=== PATIENT | male | born 1945 | race African-American/Black ===

== ENCOUNTER 2018-07-05 19:28 | Emergency (ER) | payer OTHER ==
[~2018-07-05] VITALS: Ht 167.6 cm; Wt 76.2 kg
[~2018-07-05 19:28] MED LIST: AGGRENOX CAPSU1 EACH PO; COLACE100 MG PO; COREG6.25 MG PO; FLOMAX0.4 MG PO; GLIPIZIDE ER10 MG PO; GLUCOPHAGE1000 MG PO; HYTRIN 5 M5 MG/1 CAP PO; LISINOPRIL40 MG PO; LYRICA25 MG PO; PIOGLITAZONE15 MG; PLAVIX 75 MG TA75 M1 PO; PRILOSEC 20 MG20 MG PO; PRINIVIL10 MG PO; TAMSULOSIN HCL0.4 MG PF; TIMOLOL GL0.5 %/5 M1 OPHTHALMIC; TOPROL XL100 MG PO; TORSEMIDE10 MG PO; TRAZODONE HCL50 MG PO; TYLENOL325 MG PO; VIAGRA100 MG PO; ZOLOFT 50 MG TA50 M1 PO; ZOLOFT100 MG PO
[2018-07-05 20:13] LABS: ABSOLUTE NEUTROPHILS 4.3 thou/uL (1.4-8.2); BASOPHILS 0.6 % (0.0-2.0); EOSINOPHILS 1.3 % (0.0-3.0); HEMATOCRIT 36.7 % (42.0-52.0); HEMOGLOBIN 12.3 gm/dL (14.0-18.0); LYMPHOCYTES 24.1 % (24.0-44.0); MCH 26.7 pg (26.0-34.0); MCHC 33.6 g/dL (28.0-37.0); MCV 79.5 fL (80.0-100.0); MONOCYTES 7.7 % (1.0-8.0); PLATELET COUNT 115 thou/uL (150-400); POLYS 66.3 % (36.0-66.0); RBC 4.61 mil/uL (4.50-6.00); RDW 15.7 % (10.5-14.5); WBC 6.5 thou/uL (4.0-11.0)
[2018-07-05 20:26] LABS: ANION GAP 10 mmol/L (7-16); BUN 43 mg/dL (7-18); CALCIUM 8.8 mg/dL (8.5-10.1); CHLORIDE 103 mmol/L (98-107); CO2 26 mmol/L (21-32); CREATININE 2.4 mg/dL (0.7-1.3); GLUCOSE 155 mg/dL (74-106); POTASSIUM 4.7 mmol/L (3.5-5.1); SODIUM 139 mmol/L (136-145)
[2018-07-05 20:31] LABS: ALBUMIN 3.5 g/dL (3.4-5.0); SGOT 17 U/L (15-37); SGPT 19 U/L (30-65); TOTAL BILIRUBIN 0.2 mg/dL (<0.1-1.0); TROPONIN-I <0.06 ng/mL (<0.06)
[2018-07-05 20:36] LABS: APTT 35.7 Seconds (24.5-32.8); INR 1.1; PROTIME 11.4 Seconds (9.3-11.4)
[2018-07-05] MEDS ORDERED: MIRALAX17 GM PO (21:15)
[2018-07-05 21:22] VITALS: BP 135/82
--- NOTE | 2018-07-06 08:49 | EKG ---
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1945 Requested By: Meredith Skinner Order Number: [id number] MD: Noman Heath Measurements Intervals [place] Rate: 69 P: -4 TN: 186 QRS: 4 QRSD: 78 T: 22 QT: 422 QTc: 452 Interpretive Statements Sinus rhythm Compared to ECG 11/28/2013 06:49:02 No significant changes Electronically Signed On 07-06-2018 8:49:04 CDT by Noman Heath [email or web address] ��������������������������������������������� <ELECTRONICALLY SIGNED> ���������������������������������������� By: Noman Heath MD ��������������������������������������������� 07/06/1849 50 50 Noman Heath MD /BLANE
== END 2018-07-05 21:34 | disposition home or self-care (01) ==
LOC: ER 19:28
PROVIDERS: Student in an Organized Health Care Education/Training Program
DX: K64.8 Other hemorrhoids (principal); E11.51 Type 2 diabetes mellitus with diabetic peripheral angiopathy without gangrene; E11.40 Type 2 diabetes mellitus with diabetic neuropathy, unspecified; E11.22 Type 2 diabetes mellitus with diabetic chronic kidney disease; I12.9 Hypertensive chronic kidney disease with stage 1 through stage 4 chronic kidney disease, or unspecified chronic kidney disease; N18.9 Chronic kidney disease, unspecified; Z87.891 Personal history of nicotine dependence; Z79.899 Other long term (current) drug therapy; Z86.73 Personal history of transient ischemic attack (TIA), and cerebral infarction without residual deficits

== ENCOUNTER 2019-09-18 10:59 | Inpatient (IN) | payer OTHER ==
[~2019-09-18] VITALS: Ht 167.6 cm; Wt 80.8 kg
--- NOTE | ~2019-09-18 | EMS ---
[address] [address] EMS Patient Care Report Name: LANI MOODY JR Room #: PRE M.R.#: [id number] Admission: Attend Phys: Discharge: Date of : 45 Report #: [id number] THIS REPORT FOR: //name// Report Transmitted: 09/18/2019 10:21 EMS Care Summary [place], [place]/[facility] Incident [id number] @ 09/18/2019 10:29 Incident Location [address] [place] [address] Patient LANI MOODY Male, 73 Years 1945 Patient Address [address] [place] [address] Patient History Diabetes,Hypertension (HTN),Stroke/CVA, Patient Allergies No known allergies, Patient Medications Insulin, Chief Complaint NUMBNESS/ TINGLING R ARM Disposition Transported No Lights/Hailey Dispatch Reason Stroke/CVA Transported To [facility] Narrative UPON ARRIVAL PT SITTING UPRIGHT ON COUCH CONSCIOUS AND ALERT. PT STATES HIS R HAND BEGAN FEELING NUMB AND TINGLY AT 1800 YESTERDAY ALONG WITH THE BOTTOM OF HIS FOOT ESPECIALLY WHEN WALKING. PT STATES HIS VISION IS MORE BLURRY THAN NORMAL AND HE IS HAVING TROUBLE BALANCING. PT TRANSPORTED TO [facility]. [address] [address] EMS Patient Care Report Name: LANI MOODY JR Room #: PRE Kendrick.#: [id number] Admission: Attend Phys: Discharge: Date of : 45 Report #: [id number] Initial Vitals @10:52P: 67,SpO2: 93, @10:52P: 72,BP: 176/100,GCS: 15, @10:40P: 68,R: 16,BP: 202/111,Pain: 0/10,GCS: 15,SpO2: 97,Revised Trauma: 12, @10:35P: 74,R: 16,BP: 205/98,Pain: 0/10,GCS: 15,Glucose: 112,SpO2: 98,Revised Trauma: 12, Assessments @10:36MENTAL:Person Oriented,Time Oriented,Event Oriented,Place Oriented,SKIN:HEENT:Head/Face: No Abnormalities,LUNG SOUNDS:General: No Abnormalities,ABDOMEN:General: No Abnormalities,PELVIS//GI:EXTREMITIES:Right Arm: Abnormal Sensation,Right Leg: Abnormal Sensation,Left Arm: No Abnormalities,Left Leg: No Abnormalities,PULSE:Radial: 2+ Normal,NEURO:No Abnormalities, Impression Stroke Procedures @10:36ALS AssessmentResponse: UnchangedSucceeded@10:42Saline Lock 10cc (20 ga) Site: Antecubital-LeftResponse: UnchangedSucceeded@10:403-Lead ECGResponse: UnchangedSucceeded Timeline 10:28,Call Received 10:28,Dispatch Notified 10:29,Dispatched 10:30,En Route 10:34,On Scene 10:35,At Patient 10:35,BP: 205/98 M,PULSE: 74,RR: 16 R,SPO2: 98 Ox,ETCO2: ,B,PAIN: 0,GCS: 15, 10:36,ALS Assessment,Response: UnchangedSucceeded, 10:40,BP: 202/111 M,PULSE: 68,RR: 16 R,SPO2: 97 Ox,ETCO2: ,BG: ,PAIN: 0,GCS: 15, 10:40,3-Lead ECG,Response: UnchangedSucceeded, 10:42,Saline Lock 10cc 20 ga Site: Antecubital-Left,Response: UnchangedSucceeded, 10:43,Depart Scene 10:52,BP: / M,PULSE: 67,RR: R,SPO2: 93 Ox,ETCO2: ,BG: ,PAIN: ,GCS: , 10:52,BP: 176/100 M,PULSE: 72,RR: R,SPO2: Ox,ETCO2: ,BG: ,PAIN: ,GCS: 15, 10:55,At Destination 11:08,Call Closed Disclaimer [address] [address] EMS Patient Care Report Name: LANI MOODY Room #: [facility] M.R.#: [id number] Admission: Attend Phys: Discharge: Date of : 45 Report #: [id number] v1.1 Copyright 2020 [employer] This EMS Care Summary contains data elements from the applicable legal record (which may be displayed differently). It is designed to provide pertinent information for the following purposes: continuity of care, clinical quality, and state data reporting. The complete legal record is available to ED staff and administrators of the receiving hospital in [facility]'s Patient Tracker. All data is provided "as is."
[~2019-09-18 10:59] MED LIST changes: +MIRALAX17 GM PO
[2019-09-18 11:03] VITALS: BP 190/96
[2019-09-18 11:31] LABS: ABSOLUTE NEUTROPHILS 3.5 thou/uL (1.4-8.2); BASOPHILS 0.3 % (0.0-2.0); EOSINOPHILS 1.7 % (0.0-3.0); HEMATOCRIT 43.3 % (42.0-52.0); HEMOGLOBIN 14.5 gm/dL (14.0-18.0); MCHC 33.5 g/dL (28.0-37.0); MCV 80.5 fL (80.0-100.0); MONOCYTES 7.3 % (1.0-8.0); PLATELET COUNT 121 thou/uL (150-400); POLYS 61.7 % (36.0-66.0); RBC 5.37 mil/uL (4.50-6.00); RDW 16.1 % (10.5-14.5); WBC 5.7 thou/uL (4.0-11.0)
[2019-09-18 11:35] LABS: ANION GAP 4 mmol/L (7-16); BUN 33 mg/dL (7-18); CHLORIDE 105 mmol/L (98-107); CO2 28 mmol/L (21-32); CREATININE 1.7 mg/dL (0.7-1.3); GLUCOSE 105 mg/dL (74-106); POTASSIUM 4.7 mmol/L (3.5-5.1); SODIUM 137 mmol/L (136-145)
[2019-09-18 11:44] LABS: APTT 36.5 Seconds (24.5-32.8); INR 1.2
[2019-09-18 11:45] LABS: ALBUMIN 3.5 g/dL (3.4-5.0); MAGNESIUM 2.1 mg/dL (1.8-2.4); SGOT 24 U/L (15-37); SGPT 22 U/L (30-65); TOTAL BILIRUBIN 0.4 mg/dL (0.2-1.0); TOTAL PROTEIN 7.2 g/dL (6.4-8.2); TROPONIN-I <0.06 ng/mL (<0.06)
[2019-09-18] MEDS ORDERED: NOVOLOG100 UNIT/M SUBQ (12:30)
[2019-09-18] MEDS ORDERED: LEVEMIR FL100 UNIT/2 SUBLING (12:31)
[2019-09-18 13:54] VITALS: BP 165/87
--- NOTE | 2019-09-18 14:02 | NUR ---
ATTEMPTED TO CALL REPORT TO CCU BUT WAS TOLD THE PT HAD NOT BEEN ASSIGNED TO A NURSE YET; WAS TOLD THEY WOULD CALL BACK SOON TO TAKE REPORT
[2019-09-18 14:06] LABS: URINE BILIRUBIN NEGATIVE (Negative); URINE BLOOD NEGATIVE (Negative); URINE CLARITY CLEAR; URINE COLOR YELLOW; URINE GLUCOSE-RANDOM* NEGATIVE (Negative); URINE KETONES NEGATIVE (Negative); URINE LEUKOCYTES-REFLEX NEGATIVE (Negative); URINE NITRITE-REFLEX NEGATIVE (Negative); URINE PROTEIN (DIPSTICK) NEGATIVE (Negative); URINE SPECIFIC GRAVITY <= 1.005 (1.005-1.035); URINE UROBILINOGEN 0.2 E.U./dl (0.2-1.0)
[2019-09-18 14:15] LABS: AMP/METHAMP Negative (Negative); BARBITURATES Negative (Negative); BENZODIAZEPINES Negative (Negative); COCAINE Negative (Negative); METHADONE Negative (Negative); OPIATES Negative (Negative); PCP Negative (Negative)
[2019-09-18 14:17] VITALS: BP 177/94
[2019-09-18 15:00] VITALS: BP 151/97
--- NOTE | 2019-09-18 18:28 | NUR ---
pt admitted to ccu 211 at 1520. 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 right eye is somewhat blurry. ns is running at 125 in left AC, pt has dentures but no poligrip with him. pt called his and other family members to give them the room phone number. he has talked to his a couple times in the past few hours. pt lying back in bed, tv on, call light in bed at side, hospital phone on side table by bed
[2019-09-18 18:55] VITALS: BP 158/85
[2019-09-18 23:47] VITALS: BP 149/76
[2019-09-19 01:07] LABS: GLYCOHEMOGLOBIN (HGB A1C) 6.6 % (4.8-5.6)
[2019-09-19 05:00] VITALS: BP 165/83
--- NOTE | 2019-09-19 05:52 | NUR ---
ASSUMED PT CARE AT 1900, PT IS AWAKE, ALERT AND ORIENTEDX4, MAKES NEEDS KNOWN, ASSESSMENTS CHARTED, SR/1DAVB ON THE MONITOR, DENIES CHEST PAIN OR SOB, VSS, PT REQUESTING TO GO TO ANOTHER HOSPITAL FOR MRI THEN COME BACK HERE , WILL PASS REPORT TO DAY NURSE
[2019-09-19 05:56] LABS: CALCIUM 8.3 mg/dL (8.5-10.1); CREATININE 1.7 mg/dL (0.7-1.3); POTASSIUM 4.8 mmol/L (3.5-5.1)
[2019-09-19 06:13] LABS: CHOLESTEROL 111 mg/dL (<200); HDL CHOLESTEROL 25 mg/dL (>40); LDL CHOLESTEROL 58 mg/dL (<100); TC:HDL 4.4 Ratio (Not establshd); TRIGLYCERIDE 144 mg/dL (<150); VLDL 29 mg/dL (<40)
[2019-09-19 06:23] LABS: SERUM ASSESSMENT Clear
[2019-09-19 08:00] VITALS: BP 180/87
--- NOTE | 2019-09-19 08:40 | EKG ---
[facility] [place] [place] [address] ELECTROCARDIOGRAM REPORT Name: LANI MOODY Room #: 211-P ADM IN M.R.#: [id number] Admission: 09/18/19 Attend Phys: Shelli Delcid MD Discharge: Date of : 45 Report #: [id number] THIS REPORT FOR: cc: [facility] - Clinic physician unknown [facility] - Clinic physician unknown Kasi Nguyen MD [facility] ~ THIS REPORT FOR: //name// [facility] ED Test Date: 2019-09-18 Test Time: 11:00:47 Pat Name: LANI MOODY Department: Room: [place] Gender: M Supervisor Cd Area: [facility] : 1945 Requested By: Favian Adam Order Number: [id number] MD: Kasi Nguyen Measurements Intervals [place] Rate: 66 P: 2 NC: 195 QRS: 0 QRSD: 78 T: 24 QT: 434 QTc: 455 Interpretive Statements Sinus rhythm Normal tracing Compared to ECG 07/05/2018 19:51:48 No significant changes Electronically Signed On 09-19-2019 8:39:34 CDT by Kasi Nguyen [email or web address] <ELECTRONICALLY SIGNED> By: Kasi Nguyen MD, FACC 09/19/19 0839 1100 1100 Kasi Nguyen MD, [facility] /EPI
--- NOTE | 2019-09-19 10:04 | 2DMMODE ---
[facility] [address] [place] [address] 2 D/M-MODE ECHOCARDIOGRAM Name: LANI MOODY Room #: 211-P ADM IN M.R.#: [id number] Admission: 09/18/19 Attend Phys: Shelli Delcid MD Discharge: Date of : 45 Report #: [id number] THIS REPORT FOR: cc: [facility] - Clinic physician unknown [facility] - Clinic physician unknown Giuseppe Barrett MD ~ ADDENDUM APPROVED REPORT Study performed: 09/19/2019 08:12:38 EXAM: Comprehensive 2D, Doppler, and color-flow Echocardiogram Patient Location: Bedside Room #: 211 Status: routine BSA: 1.90 HR: 61 bpm BP: 177/94 mmHg Rhythm: NSR Other Information Study Quality: Adequate Indications Stroke, murmur. Hx: Multiple CVAs, HTN, DM, CKD. Echo Enhancing Agent Indication: Rule out Shunt Agent(s) / Amount(s) Used: Agitated Saline 7 cc 2D Dimensions RVDd: 35.62 mm IVSd: 13.20 (7-11mm) LVOT Diam: 22.07 (18-24mm) LVDd: 40.57 mm PWd: 13.09 (7-11mm) Ascending Ao: 35.56 (22-36mm) LVDs: 27.72 (25-40mm) Aortic Root: 33.85 mm Volumes Left Atrial Volume (Systole) Single Plane 4CH: 42.62 mL Single Plane 2CH: 39.09 mL LA ESV Index: 24.00 mL/m2 Aortic Valve [facility] [place] [address] 2 D/M-MODE ECHOCARDIOGRAM Name: LANI MOODY Room #: 211-P [facility] IN .R.#: [id number] Admission: 09/18/19 Attend Phys: Shelli Delcid, Discharge: Date of : 45 Report #: [id number] AoV Peak Aaron.: 2.30 m/s AO Peak Gr.: 21.13 mmHg LVOT Max P.42 mmHg AO Mean Gr.: 12.02 mmHg AO V2 Mean: 1.66 m/s LVOT Max V: 0.78 m/s AO V2 VTI: 57.42 cm SEKOU Vmax: 1.29 cm2 Mitral Valve E/A Ratio: 1.5 MV Decel. Time: 186.74 ms MV E Max Aaron.: 0.71 m/s MV A Aaron.: 0.48 m/s MV PHT: 54.16 ms IVRT: 107.27 ms Pulmonary Valve PV Peak Aaron.: 0.79 m/s PV Peak Gr.: 2.50 mmHg Pulmonary Vein P Vein S: 0.58 m/s P Vein A: 0.24 m/s P Vein D: 0.40 m/s P Vein S/D Ratio: 1.45 Left Ventricle The left ventricle is normal size. There is normal LV segmental wall motion. Mild to moderate concentric left ventricular hypertrophy. Left ventricular systolic function is normal. LVEF is 60-65%. Moderate diastolic dysfunction is present. Right Ventricle The right ventricle is normal size. The right ventricular systolic function is normal. Atria The left atrium size is normal. No shunting noted by contrast bubble injection. The right atrium size is normal. Aortic Valve Aortic valve is moderately calcified. Mild aortic regurgitation. There is mild to moderate valvular aortic stenosis. Calculated aortic valve area is 1.3 cm2 with maximum pressure gradient of 21 mmHg and mean pressure gradient of 12 mmHg. Mitral Valve The mitral valve is normal in structure. Mild mitral regurgitation. No evidence of mitral valve stenosis. [facility] [address] [place] [address] 2 D/M-MODE ECHOCARDIOGRAM Name: LANI MOODY Room #: 211-P [facility] IN .R.#: [id number] Admission: 09/18/19 Attend Phys: Shelli Delcid, Discharge: Date of : 45 Report #: [id number] Tricuspid Valve The tricuspid valve is normal in structure. There is no tricuspid valve regurgitation noted. Unable to assess PA pressure. Pulmonic Valve The pulmonary valve is normal in structure. Trace pulmonic regurgitation. Great Vessels The aortic root is normal in size. The ascending aorta is normal in size. IVC is not well visualized. Pericardium There is no pericardial effusion. <Conclusion> The left ventricle is normal size. LVEF is 60-65%. Aortic valve is moderately calcified. Mild aortic regurgitation. There is mild to moderate valvular aortic stenosis. Calculated aortic valve area is 1.3 cm2 with maximum pressure gradient of 21 mmHg and mean pressure gradient of 12 mmHg. The mitral valve is normal in structure. Mild mitral regurgitation. The tricuspid valve is normal in structure. The pulmonary valve is normal in structure. Trace pulmonic regurgitation. There is no pericardial effusion. No shunting noted by contrast bubble injection. <ELECTRONICALLY SIGNED> By: Giuseppe Barrett MD 09/19/19 1003 1003 1003 Giuseppe Barrett MD /INF
--- NOTE | 2019-09-19 10:35 | NUR ---
Patient admits with TIA. Sp with patient via phone. 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 Patient does not use any assistive device. He reports he can drive but prefers to drive. Lives in independent home with . Has steps in home and he reports not difficulty with steps. PCP Dr Deal in [place]. Patient questioned when he will be discharged, discussed pending test results. casemgt following.
--- NOTE | 2019-09-19 11:00 | NUR ---
PT. LEFT FOR MRI AT THIS TIME, DENIES ANY SOB, DENIES ANY CP. TELE MONITOR REMOVED FRO SCAN WILL REPLACE POST PROCEDURE. IV SITE IS PATENT IN LEFT ANTECUBETAL AREA, FLUSHES WELL AND BLOOD RETURN OBTAINED WHEN CHECKED WELL.
--- NOTE | 2019-09-19 11:02 | NUR ---
: PT. AWAKE , AOX4, CONVERSATIONAL AND APPROPRIATE WELL. FOLLOWS COMMANDS. NO FACIAL DROOPING OBSERVED. TONGUE PROTRUSION IS MIDLINE AND EQUAL. NIH STROKE SCALE PERFORMED SCORE OF 2. PT. IS IN SRWITH 1ST DEGREE AV BLOCK AT PRESENT, NO ECTOPY OBSERVED. ON ROOM AIR, NO OXYGEN REQUIRED, DENIES ANY SOB. PLACED A CALL DOWN TO MRI TO CALL ME BACK WITH STATUS UPDATE REGARDING THE MRI MACHINE AND IF IT IS FUNCTIONAL AND SCANNING UP AND RUNNING AGAIN, LEFT MESSAGE.
[2019-09-19 12:00] VITALS: BP 155/97
--- NOTE | 2019-09-19 15:35 | NUR ---
Patient admits with CVA. Sp with patient by phone. Patient resides at home with . 3 Steps to enter home and 12 steps to rec room where laundry and television are located. Patient reports using cane at home and community. He does not have a walker. 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 PCP Dr Mary Velasquez at [facility]. Therapy evals in process and [facility] consulted. Casemgt following for dc planning.
[2019-09-19 16:00] VITALS: BP 129/80
[2019-09-19 19:38] VITALS: BP 107/72
[2019-09-20] VITALS (8 sets, daily range): BP systolic 124–188; BP diastolic 28–89
--- NOTE | 2019-09-20 04:52 | NUR ---
ASSESSMENT DOCUMENTED.PT BEEN RESTING IN NO ACUTE DISTRESS.A/OX4.VSS.SR ON MONITOR W/1DEG/BBB.RA W/O RESP DISTRESS.PT C/O WEAKNESS,NUMBNESS ADN TINGLING TO RIGHT SIDE BUT DO ADMIT IT SI GETTING BETTER.MRI ORDERED FOR TODAY.NO OTHER CONCENS VOICED AT THIS TIME.POSSIBLE DISCHARGE TODAY OR TOMORROW.
[2019-09-20 05:23] LABS: CALCIUM 8.2 mg/dL (8.5-10.1); CREATININE 1.9 mg/dL (0.7-1.3); MAGNESIUM 1.9 mg/dL (1.8-2.4); POTASSIUM 4.4 mmol/L (3.5-5.1)
--- NOTE | 2019-09-20 08:11 | NUR ---
PT. ASLEEP THIS AM WHEN i WENT INTO HIS ROOM. AWOKE FOR BREAKFAST RIGHT NOW AND [facility] MRI IS ON THE SCHEDULE FOR TODAY AND WE DISCUSSED SUCH AT THIS TIME.
--- NOTE | 2019-09-20 08:29 | NUR ---
PATIENT IS AN APPROPRIATE CANDIDATE FOR ACUTE REHAB STAY. PATIENT CAN BE ADMITTED TO WHEN PATIENT IS MEDICALLY READY AND INSURANCE AUTHORIZATION HAS BEEN OBTAINED. THANK YOU FOR THIS REFERRAL.
--- NOTE | 2019-09-20 14:45 | NUR ---
Patient accepted to [facility] clinically they are working to obtain auth with insurance. SP with patient regarding [facility] he plans to sp with when she visits. SP with who reports she is agreeable for patient to transition to [facility] for rehab. Updated RN.
[2019-09-21 07:59] VITALS: BP 177/78
[2019-09-21 10:38] LABS: CALCIUM 8.6 mg/dL (8.5-10.1); CREATININE 1.7 mg/dL (0.7-1.3); POTASSIUM 4.2 mmol/L (3.5-5.1)
[2019-09-21 11:12] VITALS: BP 112/63
[2019-09-21] MEDS ORDERED: LIPITOR40 MG PO (11:23)
[2019-09-21] MEDS ORDERED: PEPCID20 MG PO (11:23)
[2019-09-21] MEDS ORDERED: ADULT LOW DOSE81 MG PO (11:23)
--- NOTE | 2019-09-21 11:38 | NUR ---
All parties anticipating dc to [facility] acute rehab today. [facility] cm to follow for dc planning needs.
--- NOTE | 2019-09-21 12:15 | NUR ---
PATIENT SEEN BY TOOTH CUTTER PINION. INFORMATION SHARED REGARDING EXPECTATIONS FOR ACUTE REHAB STAY AND PATIENT WAS GIVEN BROCHURE. PATIENT IS AGREEABLE TO PLAN FOR ADMIT TO [facility]. PATIENT SHOULD ADMIT THIS DATE. AUTHORIZATION HAS BEEN OBTAINED FROM PATIENT'S INSURANCE. THANK YOU FOR THIS REFERRAL.
--- NOTE | 2019-09-21 12:17 | NUR ---
PT CARE ASSUMED APPROX 0700. ASSESSMENTS CHARTED. PT DENIES PAIN AND SOA. BP ELEVATED THIS AM. DR AWARE. VITAL SIGNS OTHERWISE STABLE. UP WITH SBA AND USE OF WALKER. DISCHARGING TO [facility] REHAB AT THIS TIME. REPORT GIVEN TO DANNY-ADMISSION COORDINATOR. WAITING TO CALL REPORT TO FLOOR NURSE PER DANNY'S REQUEST. PT DENIES QUESTIONS OR CONCERNS REGARDING POC OR TRANSFER. NO DISTRESS NOTED. IV OUT, TELE OFF.
--- NOTE | 2019-09-21 13:40 | NUR ---
PT TRANSFERRING AT THIS TIME. NO ISSUES NOTED. REPORT CALLED TO ANDRÉS. RECEIVING NURSE DENIED QUESTIONS OR CONCERNS REGARDING PT'S TRANSFER OR POC.
[2019-09-21 14:07] LABS: ANA INTERPRETATION Negative (Negative)
[2019-09-21 21:06] LABS: SYPHILIS AB Non Reactive (Non Reactive)
--- NOTE | 2019-09-27 12:02 | HC ---
[facility] [place] [address] CONSULTATION Name: LANI MOODY Room #: 211-P [facility] IN M.R.#: [id number] Admission: 09/18/19 Attend Phys: Shelli Delcid MD Discharge: 09/21/19 Date of : 45 Report #: [id number] THIS REPORT FOR: cc: [facility] - Clinic physician unknown [facility] - Clinic physician unknown Jaylen Duran MD ~ CC: [facility] unknown Shelli Delcid DATE OF SERVICE: 09/18/2019 HISTORY OF PRESENT ILLNESS: This is a 73-year-old male patient for whom a consultation was kindly requested by Dr. Adam from Emergency Room. I talked to him on the phone and he gave a history that the patient presented with numbness and some weakness on the right side, but this started yesterday. Therefore, it looks like he was outside the window for any intervention. I suggested doing an MRI of the brain, MRA of the head and MRA of the neck. As I understand from Dr. Adam and from his notes, MRI was down and was not going to be available till Wednesday. Therefore, he did a CT angiogram of the head and neck with contrast. I noticed that when I tried to see the patient, the patient's GFR was 48, but reviewing the previous creatinine, it looks like in 2013, his creatinine was up to 3.1 and it runs a reasonably high. Therefore, I canceled the CT angiogram, but it looks like they had already done the CT angiogram. I talked to Dr. Adam again and asked him to give at least fluids and I think I will still continue fluid in this patient. The patient does not think his symptoms have become worse. He is on Plavix that has been prescribed by [facility]. He has weakness in the left lower extremities. This is the longstanding, but he says it happened because of trauma, but some of the history says that it happened because of his stroke. REVIEW OF SYSTEMS: Indicate that this patient gives a history that he had 3 strokes in the past. Further history in that regard is not clear, but he takes Plavix. If anything, his symptoms are improving, but he still has significant weakness. He does have a history of diabetes. He has a post-traumatic stress disorder. He has neuropathy of the hands and feet. He has 3 CVAs as I understand. This was his relevant 14-point review of system. PAST MEDICAL HISTORY: Positive for 3 strokes. Further history is not clear. FAMILY HISTORY: Unremarkable. SOCIAL HISTORY: He used to smoke and drink alcohol, but he does not do either one of them now. PHYSICAL EXAMINATION: Indicate He is alert. He is responsive. He is able to follow simple commands. I do not believe his speech is much affected. He is [facility] [address] [place] [address] CONSULTATION Name: LANI MOODY Room #: 211-P [facility] IN M.R.#: [id number] Admission: 09/18/19 Attend Phys: Shelli Delcid MD Discharge: 09/21/19 Date of : 45 Report #: [id number] blind in the left eye. His cranial nerve examination otherwise appear noncontributory. Blindness is because of glaucoma. He is weak on the right side as well as the left leg. I do not know how much is new and how much is old. He could not tell me at all position sense on the right side, left side he still tell some. His reflexes are asymmetrical, but I do not know what his baseline has been. There is no meningeal sign. His vital signs indicate a blood pressure of 151/97, respirations 18, pulse is 68, temperature is 97.9. I reviewed his imaging study and they were basically not showing any acute changes. IMPRESSION: The patient's clinical presentation is consistent with the stroke. I think that is what we need to work him up further. Our MRI machine is broken. I discussed with them the option of going to another hospital or just staying here to till Wednesday to get it done. He wants to stay here to tell Wednesday. We will await what the MRI shows and only then further management can be done. He needs to be on a combination of aspirin and Plavix. I am concerned about him getting the contrast. As mentioned above, although his creatinine is 1.7 today, which is somewhat high, but it was higher even before. I will reach Dr. Delcid, they can either consult Nephrology or continue fluids, but I think we should continue fluids at least for 24 hours till the repeat creatinine come back. Thank you very much for this referral and if you have any questions, please feel free to contact me. Time spent about 50 minutes, majority counseling and coordinating. <ELECTRONICALLY SIGNED> By: Jaylen Duran MD 09/27/19 1202 [id number] 08 Jaylen Duran MD /nt
== END 2019-09-21 14:24 | DRG 65 ==
LOC: ER 10:59 → 2N 13:08 → EROBS 13:08 → 2N 14:17
PROVIDERS: Emergency Medicine; Internal Medicine; Psychiatry & Neurology Neuromuscular Medicine; ADMIT Internal Medicine; ATTEND Internal Medicine
DX: I63.89 Other cerebral infarction (principal); N17.9 Acute kidney failure, unspecified; G81.94 Hemiplegia, unspecified affecting left nondominant side; N18.3 Chronic kidney disease, stage 3 (moderate); E11.22 Type 2 diabetes mellitus with diabetic chronic kidney disease; I12.9 Hypertensive chronic kidney disease with stage 1 through stage 4 chronic kidney disease, or unspecified chronic kidney disease; N40.0 Benign prostatic hyperplasia without lower urinary tract symptoms; K59.00 Constipation, unspecified; E11.51 Type 2 diabetes mellitus with diabetic peripheral angiopathy without gangrene; E11.42 Type 2 diabetes mellitus with diabetic polyneuropathy; E78.5 Hyperlipidemia, unspecified; F32.9 Major depressive disorder, single episode, unspecified; D69.6 Thrombocytopenia, unspecified; Z88.6 Allergy status to analgesic agent; Z87.891 Personal history of nicotine dependence; Z80.3 Family history of malignant neoplasm of breast; Z82.49 Family history of ischemic heart disease and other diseases of the circulatory system; Z79.82 Long term (current) use of aspirin; Z79.899 Other long term (current) drug therapy
CPT/HCPCS: 10081

== ENCOUNTER 2019-09-20 16:35 | Inpatient (IN) | payer OTHER ==
[~2019-09-20] VITALS: Ht 167.6 cm; Wt 78.0 kg
[~2019-09-20 16:35] MED LIST changes: +LEVEMIR FL100 UNIT/2 SUBLING; +NOVOLOG100 UNIT/M SUBQ
[2019-09-21] MEDS ORDERED: PEPCID20 MG PO (11:23)
[2019-09-21] MEDS ORDERED: LIPITOR40 MG PO (11:23)
[2019-09-21] MEDS ORDERED: ADULT LOW DOSE81 MG PO (11:23)
[2019-09-21 13:54] VITALS: BP 163/84
--- NOTE | 2019-09-21 14:00 | NUR ---
chart review. pt getting ready to dc to acute [facility] rehab. noted pt is a & o x 3 and able to make his needs know. unable to visit with him as he on the phone. cm called spoke with his juan via phone call. intro to cm , dcp and team meeting and provided number to 5n [phone] " oh this is helpful, he wants different pair of shoes for rehab what is good time to visit. education on not interrupting therapy so around lunch time is good. " ok, we live in house with 3 steps to enter, 12 steps to living room and laundry room. independent when feeling ok. has cane, manage his own medication. he uses a pill box and set up 2 weeks of medication. he checks own bs and gives self own insulin. get medication via mail order. drives vehicle. hh was after his big stroke in 2007, not sure who it was with. [facility]."/chart and . will cont following as needed for dc needs.
--- NOTE | 2019-09-21 14:42 | NUR ---
PT ARRIVED AT 1330 FROM CCU. VITALS STABLE. DENIES PAIN. LS CLEAR. BS ACTIVE *4, ABDOMEN SOFT BUT DISTENDED, PT REPORTED A SMALL BM TODAY FIRST SINCE ADMISSION. IV ON LEFT AC REMAINS INTACT AND PATENT. PT UP WITH 1 MIN ASSIST, GB AND WALKER. Q1H VISUAL CHECKS. CALL LIGHT WITHIN REACH. FALL PRECAUTIONS IN PLACE
[2019-09-21 20:00] VITALS: BP 189/107
--- NOTE | 2019-09-22 04:45 | NUR ---
RECIEVED CARE OF THIS PATIENT AT 1900. PATIENT ALERT AND ORIENTED X4. UP TO TOILET WITH SBA ASSIST. ACCUCHECK WAS 133, NO COVERAGE NEEDED. DENIES PAIN. SLEPT MOST OF THE NIGHT.
[2019-09-22 05:51] LABS: CALCIUM 8.7 mg/dL (8.5-10.1); CREATININE 1.6 mg/dL (0.7-1.3); POTASSIUM 4.4 mmol/L (3.5-5.1)
[2019-09-22 05:57] LABS: HEMATOCRIT 39.3 % (42.0-52.0); HEMOGLOBIN 13.2 gm/dL (14.0-18.0); MCH 26.9 pg (26.0-34.0); MCHC 33.4 g/dL (28.0-37.0); MCV 80.3 fL (80.0-100.0); RBC 4.9 mil/uL (4.50-6.00); RDW 15.6 % (10.5-14.5); WBC 5.7 thou/uL (4.0-11.0)
[2019-09-22 07:30] VITALS: BP 169/93
--- NOTE | 2019-09-22 14:49 | NUR ---
ASSUMED CARE OF PT AT 0715. PT IS A&OX3. IS ON ROOM AIR. REPORTED PAIN IN HIS RIGHT HAND THAT IS BEING MANAGED WITH PAIN MEDS. IS STABLE. IS UP WITH 1 ASSIST, Levar KEY. FALL PRECAUTIONS & HOURLY ROUNDING CONTINUED THIS SHIFT. LABS & VITALS REVIEWED. PT HAS NON-PITTING EDEMA IN RIGHT FOOT. IS ELEVATING IN RECLINER. TAKES MEDS WHOLE IN APPLESAUCE WITHOUT SWALLOWING DIFFICULTY. HAS ACCU CHECKS ACHS WITH LOW DOSE SLIDDING SCALE SHORT ACTING INSULIN. VOIDS PER URINAL WHEN IN BED. IS ABLE TO TURN SELF. HAD IV IN LEFT AC ASKED TO BE REMOVED. PT IS CURRENTLY IN ROOM TALKING WITH SPOUSE. CALL LIGHT WITHIN REACH. CHAIR ALARM ON. WILL CONTINUE TO MONITOR.
--- NOTE | 2019-09-22 16:10 | NUR ---
PT HAD 75 ML OF URINE IN BLADDER POST VOID. WILL CONTINUE TO MONITOR. PT IS STABLE. IS IN BED NAPPING. SPOUSE AT BEDSIDE. WILL CONTINUE TO MONITOR.
[2019-09-22 19:30] VITALS: BP 150/89
--- NOTE | 2019-09-22 23:52 | NUR ---
PT ASSESSMENT COMPLETED AND VSS. MEDS GIVEN ORDERED AND WELL TOLERATED. FALL PRECAUTIONS IN PLACE. PT BG WAS 68 AT 1700 DURING THE DAY. AT 1900 IT WENT UP TO 159. AT 2100 PT BG WAS 83. CONTACTED ARMANDO KUMAR AND PER ORDERS PROVIDED A SNACK AND HELD ALL HS INSULIN. WILL SPOT CHECK PT BG NEEDED. SLEEPING WELL. DENIES NEEDS. VOIDING MODERATE AMOUNT PER URINAL. WILL CONTINUE TO MONITOR FREQUENTLY.
[2019-09-23 08:20] VITALS: BP 113/72
--- NOTE | 2019-09-23 09:10 | NUR ---
ASSUMED CARE AT 0700. PATIENT IS ALERT AND ORIENTED X4. PATIENT HAS MILD LEFT SIDED WEAKNESS AND RIGHT SIDED WEAKNESS FROM PREVIOUS CVA'S AND HIS CURRENT CONDITION. LUNGS ARE CLEAR. ABD IS SOFT WITH BSX4. PATIENT HAD BM THIS A.M. UP IN CHAIR FOR MEALS. PATIENT IS UP WITH GAIT BELT AND WALKER WITH ASSIST OF 1 STAFF. FALL AND SAFETY PROTOCOLS IN PLACE. DENIES PAIN AT THIS TIME. CONTINUES TO PROGRESS TOWARDS D/C GOALS. WILL CONTINUE TO MONITER.
[2019-09-23 20:00] VITALS: BP 136/84
--- NOTE | 2019-09-23 23:56 | NUR ---
PT ASSESSMENT COMPLETED AND VSS. MEDS GIVEN ORDERED AND WELL TOLERATED. FALL PRECAUTIONS IN PLACE. PT WAS ABLE TO REMOVE HIS SHIRT AND PANTS WITH MINIMAL ASST. HE HELPED PUT ON HIS GOWN FOR BED. VOIDING PER URINAL INDEPENDANTLY. BG DROPPING THIS EVENING AGAIN AFTER DROPPING DURING THE DAY. SNACK PROVIDED. CONTACTED ARMANDO KUMAR. HELD ALL HS INSULIN PER ORDERS. WILL CONTACT ENDOCRINOLOGY IN THE AM FOR ROUTINE CONSULT. PT BG BETTER AFTER SNACK. WILL CONTINUE TO MONITOR. ASST WITH REPOSITION USING PILLOW FOR COMFORT. SLEEPING WELL. WILL CONTINUE TO MONITOR FREQUENTLY.
[2019-09-24 11:16] VITALS: BP 135/82
--- NOTE | 2019-09-24 14:13 | NUR ---
ASSUMED CARES AT 0700. PT AWAKE, ALERT AND ORIENTED*4. DENIES PAIN AT THIS TIME. VITALS REMAIN STABLE. PT PARTICIPATED IN THERAPY AND TOLERATED WELL. UP WITH 1 MIN ASSIST, GB AND WALKER. SLEEPING AFTER LUNCH. Q1H VISUAL CHECKS. CALL LIGHT WITHIN REACH. FALL PRECAUTIONS IN PLACE
[2019-09-24 20:16] VITALS: BP 144/85
--- NOTE | 2019-09-25 02:20 | NUR ---
BLOOD SUGAR 115 AT HS, ENCOURAGED TO HAVE SNACK WITH ORDERED LANTUS. BLOOD SUGAR NOW IS 105. STATES NOT SLEEPING WELL, AT HOME HE TAKES MELATONIN WITH TRAZADONE, NOT TO MENTION A LARGER DOSE OF LYRICA. PLAN IS FOR COSULT TO DR AUSTIN WHEN HIS OFFICE OPENS TODAY. USING URINAL.
[2019-09-25 07:46] LABS: CALCIUM 8.3 mg/dL (8.5-10.1); CREATININE 1.6 mg/dL (0.7-1.3); MAGNESIUM 1.9 mg/dL (1.8-2.4); POTASSIUM 4.6 mmol/L (3.5-5.1)
[2019-09-25 08:00] VITALS: BP 166/92
--- NOTE | 2019-09-25 08:34 | NUR ---
bedside nurse passed on that pt has question for cm. cm called juan, she had question " well i havent heard how he is doing other than i supposed to bring up his medication for bs and he not getting something that he takes at home. i have already left message for to call me but have not go call yet. i am going to be the one who takes care of him and home and he will do the stairs. he likes to do his own laundry and that is in the [place]. why can i not go to the meeting tomorrow?"/juan. education that team meeting is for all pt plan of care and dcp. therapy can do family training with therapist prior to dc. nitesh passed on to dr luis to reach out to his juan
[2019-09-25 11:32] LABS: HEMATOCRIT 38.9 % (42.0-52.0); HEMOGLOBIN 12.8 gm/dL (14.0-18.0); MCH 26.9 pg (26.0-34.0); MCHC 32.9 g/dL (28.0-37.0); MCV 81.7 fL (80.0-100.0); RBC 4.76 mil/uL (4.50-6.00); RDW 16.5 % (10.5-14.5); WBC 5.5 thou/uL (4.0-11.0)
--- NOTE | 2019-09-25 16:22 | NUR ---
ASSUMED CARE AROUND 0700, PT A&O X 3, FORGETFUL AT TIMES, NO ACUTE DISTRESS NOTED. VSS, O2 ON RA. PT DENIES ANY PAIN OR DISCOMFORT DURING SHIFT. MEDS GIVEN PER ORDERS, TOLERATED WELL. BG ACHS, ENDOCRINOLOGY CONSULTED FOR LOW BG'S, ASSESSED PT AT BEDSIDE. PT CONTINENT OF B&B, BM TODAY, HARD, MIRALAX STARTED BID. USES URINAL. PT RESTING IN BED, CALL LIGHT WITHIN REACH, WILL CONTINUE TO MONITOR PER POC.
[2019-09-25 19:30] VITALS: BP 135/73
--- NOTE | 2019-09-26 05:45 | NUR ---
RECIEVED CARE OF THIS PATIENT AT 1900. PATIENT ALERT AND ORIENTED X4. DENIES PAIN. ACCUCHECK WAS 172, RECEIVED 3 UNITS LISPRO INSULIN AND 14 UNITS GLARGINE INSULIN. SLEPT MOST OF THE NIGHT.
[2019-09-26 08:30] VITALS: BP 106/63
--- NOTE | 2019-09-26 13:45 | NUR ---
ASSUMED CARE AROUND 0700, PT A&O X 4, NO ACUTE CHANGES NOTED. VSS, O2 ON RA. PT DENIED ANY PAIN OR DISCOMFORT DURING SHIFT. MEDS GIVEN PER ORDERS, TOLERATED WELL. BG ACHS WITH SS NEEDED. CONTINENT OF B&B, BM 09/25/19. RELAXING IN RECLINER, CALL LIGHT WITHIN REACH, WILL CONTINUE TO MONITOR PER POC.
--- NOTE | 2019-09-26 14:24 | NUR ---
team meeting, dc 10/03/2019 to come in on wednesday10/02/2019 between 9-10 am for therapy training. assist with pills and bill. home health (pt, ot, st, nursing and sw). no dme needs. cont education with dm and medication.
--- NOTE | 2019-09-26 16:38 | HC ---
[facility] [place] [address] CONSULTATION Name: LANI MOODY Room #: 512-P [facility] IN M.R.#: [id number] Admission: 09/21/19 Attend Phys: Lew Dyson MD Discharge: Date of : 45 Report #: [id number] THIS REPORT FOR: cc: [facility] - Clinic physician unknown [facility] - Clinic physician unknown Gonzalo Frost MD ~ CC: Lew FAIRCHILD unknown DATE OF SERVICE: 09/25/2019 ENDOCRINE CONSULTATION NOTE CONSULTING PHYSICIAN: Dr. Lew Dyson. REASON FOR CONSULTATION: Hypoglycemia, type 2 diabetes mellitus. HISTORY OF PRESENT ILLNESS: This is a pleasant 73-year-old male patient whose medical background is significant for multiple medical issues including type 2 diabetes mellitus, hypertension, hyperlipidemia, diabetic neuropathy as well as a prior history of CVA. The patient was admitted to [facility] on 09/18/2019 with neurological symptoms that led to the finding of acute CVA involving his left thalamus on a background of chronic cerebrovascular changes. The patient was treated medically and seems to have improved slowly and was eventually transferred to the rehab unit for further physical rehabilitation. The patient has a longstanding history of type 2 diabetes mellitus, he describes home based regimen of NovoLog insulin taken as 4-6 units with meals in addition to Levemir insulin taken as 16 units at night. The patient describes a fairly consistent level of control, maintaining his blood glucose values typically in the low to mid 100 mg/dL range. He does report occasional hypoglycemia, but describes these episodes as [id number] and never having resulted in severe symptoms requiring third democrat assistance. The patient is known to have glaucoma, but does not believe he has diabetic retinopathy, he is known to have chronic renal insufficiency, he has peripheral diabetic neuropathy. The patient does not have CAD, but has had 3 strokes including his most recent stroke a week ago. The patient has hypertension and is maintained on a number of antihypertensive agents including carvedilol, lisinopril, and Demadex. REVIEW OF SYSTEMS: CONSTITUTIONAL: Fatigue, tiredness, but no fever, chills or changes in body [facility] [address] [place] [address] CONSULTATION Name: LANI MOODY Room #: 512-P [facility] IN M.R.#: [id number] Admission: 09/21/19 Attend Phys: Lew Dyson MD Discharge: Date of : 45 Report #: [id number] weight. HEENT: Negative for sore throat, sinus pain or ear drainage. PULMONARY: Negative for shortness of breath, cough or hemoptysis. CARDIAC: Negative for chest pain, palpitations, syncope or presyncope. GASTROINTESTINAL: Negative for abdominal pain, nausea, vomiting or changes in bowel movement frequency. NEUROLOGY: Noted for baseline issues with peripheral diabetic neuropathy, as well as a significant history of multiple cerebrovascular accidents including one that occurred a week ago. PSYCHIATRIC: Negative for delusions, hallucinations. Otherwise, his review of systems noncontributory other than those mentioned in HPI. PAST MEDICAL HISTORY: 1. Type 2 diabetes mellitus. 2. Peripheral diabetic neuropathy. 3. Chronic kidney disease. 4. Multiple CVAs, starting in 2007 with his most recent being a week ago. 5. Hypertension. 6. Hyperlipidemia. 7. Benign prostatic hypertrophy. 8. Peripheral vascular disease. 9. Depression. 10. Posttraumatic stress disorder. CURRENT MEDICATIONS: Include aspirin 81 mg daily, atorvastatin 40 mg daily, Plavix 75 mg daily, famotidine 20 mg daily, lisinopril 10 mg daily, sertraline 50 mg daily, torsemide 10 mg daily, glipizide 10 mg with breakfast, docusate b.i.d. 100 mg, Lantus insulin 16 units at bedtime, Humalog supplemental scale, Lyrica 25 mg b.i.d., tamsulosin 0.4 mg at bedtime, timolol eyedrops b.i.d., hydralazine 10 mg q. 6 hours p.r.n. ALLERGIES: CODEINE. FAMILY HISTORY: Noncontributory. SOCIAL HISTORY: The patient lives with his . He has 2 children and 2 stepchildren. He is an ex-smoker who quit in 2007. He drinks alcohol only seldom. PHYSICAL EXAMINATION: GENERAL: Pleasant male patient who is not in apparent pain or distress. VITAL SIGNS: Blood pressure is 166/92 mmHg, heart rate is 68 beats per minute, respirations 20 per minute, temperature 36.7 degrees Celsius. CONSTITUTIONAL: The patient is sitting upright in his wheelchair, appears relatively comfortable, not in apparent distress. HEENT: Anicteric sclerae. Intact extraocular motions. [address] [address] CONSULTATION Name: LANI MOODY JR Room #: 512-P ADM IN M.R.#: [id number] Admission: 09/21/19 Attend Phys: Lew Dyson MD Discharge: Date of : 45 Report #: [id number] NECK: Supple, without JVD. No thyromegaly. CHEST: Noted for moderate entry bilaterally with scattered rales. No wheeze or crackles. HEART: Regular rate and rhythm without murmurs or gallops. ABDOMEN: Soft, lax. No guarding. Active bowel sounds. EXTREMITIES: Lower extremity exam is noted for trace ankle edema. No skin breaks or ulcerations. NEUROLOGIC: Awake, alert and oriented to time, place and person. The patient is generally weak. Moves with difficulties with small steps, has sensory deficits peripherally. PSYCHIATRIC: Pleasant, interactive. Normal mood and affect. Normal thought process. LABORATORY DATA: His most recent blood glucose was 123 mg/dL immediately before this dictation. Prior to that 93 and having reviewed his blood glucose values over the past 4 days he has had low points of 69, 71, 79, and 83 mg/dL at variable times during the day including prior to breakfast and evenings and afternoons. Otherwise, sodium 139, potassium 4.6, chloride 106, CO2 of 24, anion gap 9, BUN 33, creatinine 1.6, glucose 137. AST 24, total bilirubin 0.4, calcium 8.3, phosphorus 4.1, magnesium 1.9, alkaline phosphatase 83, ALT 22, total protein 7.2, albumin 3.5, EGFR 52, total cholesterol 111, triglycerides 144, HDL 25, LDL 58. INR 1.2. White blood count 5.5, hemoglobin 12.8, hematocrit 38.9, platelets 117. Hemoglobin A1c is 6.6%. TSH 2.40. ASSESSMENT AND PLAN: 1. Type 2 diabetes mellitus. The patient has had a longstanding history of type 2 diabetes mellitus with associated end-organ complications including chronic kidney disease and neuropathy. Overall, he has been on a stable basal bolus regimen with which he has done rather well as per his reported blood glucose values. The patient has been placed on a combination of glipizide 10 mg daily as well as Lantus 16 units q.p.m. during his stay here and with that, he was noted to have frequent mostly mild to moderate hypoglycemic episodes. This is likely due to the current combination, especially the inclusion of sulfonylurea. That said, I would like to discontinue his glipizide completely as well as drop his Lantus insulin to 14 units q.p.m. while maintaining Humalog support at low intensity. Should the patient demonstrate an issue with postprandial hyperglycemia following these changes, I would rather return slowly to his basal bolus regimen as needed, especially that this would make for a reasonable and smooth transition back to his usual home regimen upon discharge. In the immediate setting, continue with blood glucose monitoring a.c. and at bedtime. 2. Hypoglycemia. As noted above, the patient has had multiple episodes of sfnm-oi-[id number] hypoglycemia likely due to the current therapeutic setting as well as him advancing his physical activity. As noted above, therapeutic changes will be made towards averting further hypoglycemia. Blood glucose [address] [address] CONSULTATION Name: LANI MOODY JR Room #: 512-P [facility] IN M.R.#: [id number] Admission: 09/21/19 Attend Phys: Lew Dyson MD Discharge: Date of : 45 Report #: [id number] monitoring will continue and hypoglycemia will be addressed as per the [facility] hypoglycemia protocol. 3. Hypertension. The patient's level of blood pressure control has been mostly fair, he is to continue with current antihypertensive regimen. 4. Hyperlipidemia. The patient is currently maintained on atorvastatin therapy and tolerates it well, he is to continue with the same. 5. Cerebrovascular accident. The patient has a recent thalamic stroke and has had right sided lower and upper extremity numbness that seems to be improving slowly. Continue with the current regimen and advance physical activity as per the guidance of Dr. Dyson. I have reviewed the patient's clinical care notes, laboratory data, radiologic data, and other pertinent clinical information past and present for over 35 minutes in addition to my encounter time with the patient. I certainly appreciate this consultation by Dr. Dyson. <ELECTRONICALLY SIGNED> By: Gonzalo Frost MD 09/26/19 1638 [id number] Gonzalo Frost MD /nt
[2019-09-26 19:34] VITALS: BP 158/90
--- NOTE | 2019-09-27 00:30 | NUR ---
PT ALERT AND ORIENTED X 4, FORGETFUL. UP IN RECLINER ALL EVENING. TRANSFERRED TO BED AT WITH ASSIST X 1. PT TOOK HS MEDS IN [place] WITHOUT DIFFICULTY. PT DENIES PAIN OR DISCOMFORT. BED ALARM ON FOR SAFETY. PT APPEARS TO BE SLEEPING ON HOURLY ROUNDS.
[2019-09-27 08:00] VITALS: BP 144/88
--- NOTE | 2019-09-27 10:56 | NUR ---
cm visited with juan via phone call, " any home health that takes his insurance will be fine, darrel check them. i got you message and i can come on 10/02/2019 at 9am for therapy training, i have appointment i have to be at by noon so have to leave around 1130"/ juan. will cont following as needed for dc needs. referral to be sent to [facility].
--- NOTE | 2019-09-27 14:44 | NUR ---
Patient participated in community reintegration on 09/27/19 with SPEECH THERAPIST. Refer to documentation by SPEECH THERAPIST.
--- NOTE | 2019-09-27 15:01 | NUR ---
Patient participated in community reintegration on 09/27/[address] Refer to documentation by SPEECH THERAPY.
--- NOTE | 2019-09-27 16:23 | NUR ---
ASSUMED CARE OF PT AT 0700. PT IS A&OX4 AND VITAL SIGNS ARE STABLE. PT REPORTS PAIN TO BACK OF NECK AND UPPER BACK AREA, MANAGED WITH VOLTEREN GEL. ACCU CHECKS ACHS. PT PARTICIPATED IN SCHEDULED THERAPIES. CALLS APPROPRIATELY FOR ASSISTANCE. FALL PRECAUTIONS IN PLACE AND NURSING WILL CONTINUE TO MONITOR.
--- NOTE | 2019-09-27 16:43 | NUR ---
FAXED REFERRAL TO [facility] SPOKE WITH ALEJANDRINA IN INTAKE THE CAN ACCEPT AT [place].
[2019-09-27 20:29] VITALS: BP 111/67
--- NOTE | 2019-09-28 01:06 | NUR ---
PT ASSESSMENT COMPLETED AND VSS. MEDS GIVEN ORDERED AND WELL TOLERATED. FALL PRECAUTIONS IN PLACE. UP IN CHAIR EARLY DURING SHIFT. PRN TYLENOL HELPFUL FOR GENERALZIED DISCOMFORT. INSULIN GIVEN WITH SNACK. SLEEPING WELL. ASST WITH REPOSITION FOR COMFORT. WILL CONTINUE TO MONITOR FREQUENTLY.
[2019-09-28 08:00] VITALS: BP 88/56
--- NOTE | 2019-09-28 14:05 | NUR ---
ASSUMED CARE AROUND 0700, PT A&O X 4, NO ACUTE DISTRESS NOTED. VSS, O2 ON RA. PT HAS VOLTERAN GEL FOR NECK PAIN. BG ACHS WITH SS NEEDED, MEDS GIVEN PER ORDERS, TOLERATED WELL. CONTINENT OF B&B, USES BR/URINAL. PT RESTING IN RECLINER, CALL LIGHT WITHIN REACH, WILL CONTINUE TO MONITOR PER POC.
[2019-09-28 20:01] VITALS: BP 145/81
--- NOTE | 2019-09-29 02:08 | NUR ---
PT ASSESSMENT COMPLETED AND VSS. MEDS GIVEN ORDERED AND WELL TOLERATED. FALL PRECAUTIONS IN PLACE. LONG ACTING INSULIN GIVEN WITH SNACK. VOIDING MODERATE AMOUNT PER URINAL. PT DENEIS NEEDS. ASST WITH REPOSITION FOR COMFORT. SLEEPING. WILL CONTINUE TO MONITOR FREQUENTLY.
[2019-09-29 07:36] VITALS: BP 154/68
--- NOTE | 2019-09-29 15:54 | NUR ---
ASSUMED CARES AT 0700. PT AWAKE, ALERT AND ORIENTED*4. DENIES PAIN. VITALS REMAIN STABLE. DENIES PAIN. BG STABLE THIS SHIFT, NO INSULIN REQUIRED. PT UP WITH 1 MIN ASSIST, GB AND WALKER AND TOLERATED WELL. Q1H VISUAL CHECKS. CALL LIGHT WITHIN REACH. FALL PRECAUTIONS IN PLACE
[2019-09-29 19:40] VITALS: BP 101/59
--- NOTE | 2019-09-30 00:28 | NUR ---
PT ALERT AND ORIENTED X 4, FORGETFUL. AMB TO BR WITH WALKER AND ASSIST X 1 WITHOUT DIFFICULTY. BLOOD SUGAR 127 AT HS. LANTUS INSULIN HELD SINCE PT RUNS LOW BLOOD SUGARS FREQUENTLY. BP 101/59 AT HS. LISINOPRIL HELD PER PARAMETERS. TRAZADONE GIVEN AT HS PER PT REQUEST FOR SLEEP. PT CALLED FOR HS MEDS APPROPRIATELY. PT DENIES PAIN OR DISCOMFORT. BED ALARM ON FOR SAFETY. PT APPEARS TO BE SLEEPING ON HOURLY ROUNDS.
[2019-09-30 06:18] LABS: ABSOLUTE NEUTROPHILS 3.5 thou/uL (1.4-8.2); BASOPHILS 0.3 % (0.0-2.0); EOSINOPHILS 2.7 % (0.0-3.0); HEMATOCRIT 29.4 % (42.0-52.0); HEMOGLOBIN 10.1 gm/dL (14.0-18.0); LYMPHOCYTES 25.4 % (24.0-44.0); MCH 27.8 pg (26.0-34.0); MCHC 34.5 g/dL (28.0-37.0); MCV 80.7 fL (80.0-100.0); MONOCYTES 8.9 % (1.0-8.0); PLATELET COUNT 126 thou/uL (150-400); POLYS 62.7 % (36.0-66.0); RBC 3.64 mil/uL (4.50-6.00); RDW 15.8 % (10.5-14.5); WBC 5.5 thou/uL (4.0-11.0)
[2019-09-30 06:31] LABS: CALCIUM 8.7 mg/dL (8.5-10.1); CREATININE 2.2 mg/dL (0.7-1.3); MAGNESIUM 2.1 mg/dL (1.8-2.4)
[2019-09-30 07:40] VITALS: BP 122/75
[2019-09-30 12:43] LABS: URINE BILIRUBIN NEGATIVE (Negative); URINE BLOOD NEGATIVE (Negative); URINE CLARITY CLEAR; URINE COLOR YELLOW; URINE GLUCOSE-RANDOM* TRACE (Negative); URINE KETONES NEGATIVE (Negative); URINE LEUKOCYTES NEGATIVE (Negative); URINE NITRITE NEGATIVE (Negative); URINE PROTEIN (DIPSTICK) NEGATIVE (Negative); URINE UROBILINOGEN 0.2 E.U./dl (0.2-1.0)
--- NOTE | 2019-09-30 14:02 | NUR ---
ASSUMED CARES AT 0700. PT AWAKE, ALERT AND ORIENTED*4. PT CALLING ON TIME AND APPROPRIATELY FOR HIS MEDICATIONS PER ST. DENIES PAIN. VITALS REMAIN STABLE. UA COLLECTED PER ORDER, SEE LABS FOR RESULT. BLADDER SCAN BEFORE VOID 145CC, PT VOIDED 160CC. BG REMAIN STABLE, NO INSULIN NEEDED. UP WITH SBA GB AND WALKER, TOLERATED WELL. Q1H VISUAL CHECKS. CALL LIGHT WITHIN REACH. FALL PRECAUTIONS IN PLACE
--- NOTE | 2019-09-30 15:32 | NUR ---
PATIENT S.L. STARTED IN HIS LEFT FORARM WITH 22 GA JELCO. IV SITE WITHOUT REDNESS OR SWELLING. PATIENT TOLERATED PROCEDURE WELL. WILL CONTINUE TO MONITER.
[2019-09-30 19:30] VITALS: BP 166/97
--- NOTE | 2019-10-01 00:32 | NUR ---
PT ALERT AND ORIENTED X 4. AMB TO BR WITH WALKER AND ASSIST X 1 WITHOUT DIFFICULTY. VOIDING ADEQUATE AMTS CLEAR YELLOW URINE PER URINAL. POST VOID RESIDUAL 120 ML AT 2130. IV INFUSING ORDERED. PT CALLED FOR HS MEDS APPROPRIATELY. TRAZADONE GIVEN AT HS PER PT REQUEST FOR SLEEP. BED ALARM ON FOR SAFETY. PT APPEARS TO BE SLEEPING ON HOURLY ROUNDS.
[2019-10-01 05:41] LABS: ABSOLUTE NEUTROPHILS 3.1 thou/uL (1.4-8.2); BASOPHILS 0.3 % (0.0-2.0); EOSINOPHILS 2.5 % (0.0-3.0); HEMATOCRIT 29.3 % (42.0-52.0); HEMOGLOBIN 9.8 gm/dL (14.0-18.0); LYMPHOCYTES 23.4 % (24.0-44.0); MCH 27.4 pg (26.0-34.0); MCHC 33.6 g/dL (28.0-37.0); MCV 81.5 fL (80.0-100.0); MONOCYTES 9.8 % (1.0-8.0); PLATELET COUNT 120 thou/uL (150-400); RBC 3.59 mil/uL (4.50-6.00); RDW 15.2 % (10.5-14.5); WBC 4.8 thou/uL (4.0-11.0)
[2019-10-01 05:55] LABS: ALBUMIN 2.9 g/dL (3.4-5.0); CALCIUM 8.5 mg/dL (8.5-10.1); PHOSPHORUS 4.1 mg/dL (2.5-4.9); POTASSIUM 5.5 mmol/L (3.5-5.1); TOTAL BILIRUBIN 0.2 mg/dL (0.2-1.0)
[2019-10-01 08:00] VITALS: BP 137/72
--- NOTE | 2019-10-01 12:01 | NUR ---
ASSUMED CARE AROUND 0700, PT A&O X 4, NO ACUTE DISTRESS NOTED. VSS, O2 ON RA. PT DENIES ANY PAIN OR DISCOMFORT. PT CALLED APPROPRIATELY FOR MEDS, GIVEN PER ORDERS AND TOLERATED WELL. PT PARTICIPATED IN TERRANCE THERAPIES. BG ACHS WITH SS NEEDED. CONTINENT OF B&B, BM 09/30/19. PT RESTING IN BED, CALL LIGHT WITHIN REACH, WILL CONTINUE TO MONITOR PER POC.
--- NOTE | 2019-10-01 13:20 | HC ---
[facility] [place] [address] CONSULTATION Name: LANI MOODY Room #: 512-P ADM IN M.R.#: [id number] Admission: 09/21/19 Attend Phys: Lew Dyson MD Discharge: Date of : 45 Report #: [id number] THIS REPORT FOR: cc: [facility] - Clinic physician unknown [facility] - Clinic physician unknown Shay Claudio PhD ~ CC: Lew Dyson [facility] unknown DATE OF SERVICE: 09/23/2019 NEUROBEHAVIORAL STATUS EXAMINATION AGE: 73. ATTENDING PHYSICIAN: Lew Dyson MD GANG HEMSTITCHING MACHINE OPERATOR: Shay Claudio, PhD CLINICAL PRESENTATION: The patient is a 73-year-old male admitted to the [facility] for a comprehensive inpatient rehabilitation program. He was initially admitted to the hospital with right-sided weakness. The patient was diagnosed with a left thalamic acute CVA. His history includes 3 separate ischemic strokes, all with left-sided weakness. 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 A complete description of his medical condition and history along with his medications can be found in his medical record. Neuropsychological consultation was requested to provide assistance in the assessment of cognitive and emotional status and to provide recommendations and services. Prior to this most recent admission, the patient was living independently in his home. The patient reports having been independent with instrumental activities of daily living. He is , with 2 children. The patient is a high school graduate with 1 year of college. He retired in 2011 from [employer]. The patient is a [place] . TECHNIQUES UTILIZED: Clinical interview, review of medical records, staff consultation and behavioral observation, mini mental status exam 2 standard version, clock drawing and verbal fluency assessment. [address] [address] CONSULTATION Name: LANI MOODY Room #: 512-P [facility].#: [id number] Admission: 09/21/19 Attend Phys: Lew Dyson MD Discharge: Date of : 45 Report #: [id number] EXAMINATION FINDINGS: The patient was alert and cooperative with the assessment. He accurately described the reason for his admission. There is no evidence of hallucinations. He does not report difficulty with auditory comprehension. Noted is difficulty with speech and reduced rate of verbal fluency. He describes his symptoms to include sleep disturbance, anxiety, depression, short-term memory and word finding. The patient carries a diagnosis of posttraumatic stress disorder and major depression. His performance on the MMSE 2 brief version is within normal limits with a raw score of 14/16. He was 3/3 for initial registration, 5/5 for orientation to time and place. He was 1/3 for immediate recall of 3 items after a brief time delay and distraction. His performance on the MMSE 2 standard version was 23/30. He was a T score of 34 and percentile rank of 5. He was 1/5 for serial sevens, 2/2 for naming, 1/1 for repetition, 3/3 for auditory comprehension. He could read and follow single command and also write a sentence. The patient was unable to copy a simple geometric design. The patient could not draw a clock and set the hands at a designated time. Letter fluency was extremely low with a raw score of 6, T score of 22 and percentile rank of less than 1. Category fluency was a raw score of 14, T score of 23, percentile rank of less than 1. Overall, total fluency was a raw score of 20, T score of 22 and percentile rank of less than 1. The patient is alert and oriented. However, he is presenting with severe deficits in verbal fluency, visual spatial construction and executive functioning. DIAGNOSTIC IMPRESSION: Major neurocognitive disorder (dementia), due to vascular disease, without behavior disorder -- Extent to be determined (moderate cognitive deficits are suggested). PTSD by history. Unspecified depressive disorder. RECOMMENDATIONS: The patient will require assistance in the management of medication, finances and nutrition. Supervision should be made available at home in order to provide safety. The patient should not return to driving without a more thorough assessment and possibly a behind the wheel driving evaluation. A followup neuropsychological assessment may be of benefit to clarify the severity of cognitive disorder following recovery from this most [facility] [address] [place] [address] CONSULTATION Name: LANI MOODY Room #: 512-P [facility] IN M.R.#: [id number] Admission: 09/21/19 Attend Phys: Lew Dyson MD Discharge: Date of : 45 Report #: [id number] recent stroke. Verbal praise and complements about participation in therapies will be of benefit along with assistance in the recognition of areas of improvement. He will benefit from encouragment in recognizing strengths and weaknesses in cognitive functioning that are a consequence of his cerebrovascular disease. Thank you very much for allowing me to provide the consultation on this patient. <ELECTRONICALLY SIGNED> By: Shay Claudio, PhD 10/01/19 1320 1701 [id number] Shay Claudio, PhD /nt
--- NOTE | 2019-10-01 17:38 | NUR ---
PT RECEIVED 40MG LASIX ONE TIME THIS AM. PT USED BR STANDING TO URINATE. OUTPUT X 6 WITH AT LEAST 300ML EACH TIME. WILL CONTINUE TO MONITOR.
[2019-10-01 19:24] VITALS: BP 128/75
--- NOTE | 2019-10-02 03:26 | NUR ---
PATIENT ALERT AND ORIENTED X4. UP TO SONIA CHAIR WITH ONE SBA TO BED. COOPERATIVE WITH CARE. BS MONITORED PER ORDER. VOIDING PER URINAL AND BATHROOM. PATIENT CALLING FOR MEDICATION INSTRUCTED. SBA PATIENT CHANGED FOR BED. REQUESTED AND GIVEN TRAZADONE FOR SLEEP, NO C/O PAIN. TAKIING MEDS WITH PUDDING. THIS NURSE WILL PASS ON TO AM NURSE THAT PATIENT'S WOULD LIKE FOR CASE MANAGEMENT TO CONTACT HER TODAY. PATIENT RESTING QUIETLY THROUGHOUT THE NIGHT. WILL MONITOR.
[2019-10-02 05:59] LABS: CALCIUM 8.5 mg/dL (8.5-10.1); CREATININE 1.9 mg/dL (0.7-1.3); POTASSIUM 4.8 mmol/L (3.5-5.1)
[2019-10-02 08:20] VITALS: BP 131/67
--- NOTE | 2019-10-02 08:50 | NUR ---
cm notified that pt here juan and had some question. cm called pt room spoke with her, she wanted to know if [facility] was going to be able to work with him at home and where is meeting today?"/juan. education that [facility] is able to accept for home health and will call them to set up appointment after dc tomorrow. therapy will come to room to get you both after breakfast is over. " ok thank you"/ juan. will cont following as needed for dc needs.
--- NOTE | 2019-10-02 17:35 | NUR ---
ASSUMED CARE AROUND 0700, PT A&O X 4, FORGETFUL AT TIME. REPORTS SLEPT GOOD LAST NIGHT. VSS, O2 ON RA. PT DENIES ANY PAIN OR DISCOMFORT. PT CALLED APPROPRIATELY FOR MEDS. GIVEN PER ORDERS AND TOLERATED WELL. PT PARTICIPATED IN TERRANCE THERAPIES. BS MONITOR. NO INSULIN GIVEN TODAY. MORNING MEDS GIVEN ORDERED. CONTINENT OF B&B, HAD LARGE BM TODAY. HAS URINARY RETENTION ON FLOMAX. URINATED X4 TODAY. ASSISTED PT TO BATHROOM. OFFERED SUPPORTIVE CARE, REASSESSMENT PER CHART. PT UP WITH A CANE TO BATHROOM. WAS HERE THIS AM FOR TRAINNING. REQUESTED TO TALK WITH CM THIS AM DISCUSSED ABOUT DISCHARGE. NOTIFIED DIETIAN TO TALK WITH HIS ABOUT DIET TOMORROW PRIOR DISCHARGE. PT HAS NO CONCERN AT THIS MOMENT. CALL LIGHT WITHIN REACH, WILL CONTINUE TO MONITOR PER POC.
[2019-10-02 19:30] VITALS: BP 130/89
--- NOTE | 2019-10-03 01:43 | NUR ---
UP TO TOILET WITH ASSIST TWICE FOR STANDING VOID AND TWICE USING URINAL AT BEDSIDE. STUDIED MED LIST AND ASKED FOR MEDS APPROPRIATELY AND NOTICED THAT HE IS NOW GETTING 2 CAPSULES OF FLOMAX. STATES THAT HE USES INSULIN PEN AT HOME TO GIVE HIMSELF 16 UNITS AND RECENTLY WE HAVE BEEN GIVING HIM 14. PUDDING SNACK GIVEN AT HS SINCE BLOOD SUGAR ONLY 123
[2019-10-03 07:30] VITALS: BP 111/62
[2019-10-03] MEDS ORDERED: LISINOPRIL2.5 MG PO (08:39)
[2019-10-03 10:19] VITALS: BP 111/67
--- NOTE | 2019-10-03 10:21 | NUR ---
pt to dc home today with [facility]. to assist with pills and bills. no driving till cleared by MD. will pick him up today.
--- NOTE | 2019-10-03 11:14 | NUR ---
ASSUMED CARES AT 0700. PT AWAKE, ALERT AND ORIENTED*4. FORGETFUL. DENIES PAIN AT THIS TIME. VITALS REMAIN STABLE. PT PARTICIPATED IN THERAPY AND TOLERATED WELL. IV ON LEFT HAND DC'D. PT TO DC TODAY WITH AND HH. PT TEACHING TO BE COMPLETED WITH PT AND AT THE BEDSIDE PRIOR TO DC. Q1H VISUAL CHECKS. CALL LIGHT WITHIN REACH. FALL PRECAUTIONS IN PLACE
== END 2019-10-03 13:52 | disposition home health service (06) | DRG 56 ==
PROVIDERS: Internal Medicine; Nurse Practitioner; Nurse Practitioner Family; ADMIT Physical Medicine & Rehabilitation; ATTEND Physical Medicine & Rehabilitation
DX: I69.351 Hemiplegia and hemiparesis following cerebral infarction affecting right dominant side (principal); I63.9 Cerebral infarction, unspecified; N17.9 Acute kidney failure, unspecified; R47.01 Aphasia; N18.3 Chronic kidney disease, stage 3 (moderate); E11.22 Type 2 diabetes mellitus with diabetic chronic kidney disease; I12.9 Hypertensive chronic kidney disease with stage 1 through stage 4 chronic kidney disease, or unspecified chronic kidney disease; E78.5 Hyperlipidemia, unspecified; E11.42 Type 2 diabetes mellitus with diabetic polyneuropathy; F32.9 Major depressive disorder, single episode, unspecified; N40.0 Benign prostatic hyperplasia without lower urinary tract symptoms; F43.10 Post-traumatic stress disorder, unspecified; F01.50 Vascular dementia, unspecified severity, without behavioral disturbance, psychotic disturbance, mood disturbance, and anxiety; E11.51 Type 2 diabetes mellitus with diabetic peripheral angiopathy without gangrene; E11.649 Type 2 diabetes mellitus with hypoglycemia without coma; H54.62 Unqualified visual loss, left eye, normal vision right eye; G89.0 Central pain syndrome; I35.0 Nonrheumatic aortic (valve) stenosis; Z88.6 Allergy status to analgesic agent; Z82.49 Family history of ischemic heart disease and other diseases of the circulatory system; Z87.891 Personal history of nicotine dependence; Z79.899 Other long term (current) drug therapy
CPT/HCPCS: 10112

== ENCOUNTER 2019-10-15 16:20 | Emergency (ER) | payer OTHER ==
[~2019-10-15] VITALS: Ht 167.6 cm; Wt 80.7 kg
[2019-10-15 16:20] VITALS: BP 150/58
[~2019-10-15 16:20] MED LIST changes: +ADULT LOW DOSE81 MG PO; +LIPITOR40 MG PO; +LISINOPRIL2.5 MG PO; +PEPCID20 MG PO
== END 2019-10-15 17:19 | disposition home or self-care (01) ==
LOC: ER 16:20
DX: H11.32 Conjunctival hemorrhage, left eye (principal); I12.9 Hypertensive chronic kidney disease with stage 1 through stage 4 chronic kidney disease, or unspecified chronic kidney disease; E11.22 Type 2 diabetes mellitus with diabetic chronic kidney disease; N18.9 Chronic kidney disease, unspecified; Z86.73 Personal history of transient ischemic attack (TIA), and cerebral infarction without residual deficits; Z87.891 Personal history of nicotine dependence; Z79.82 Long term (current) use of aspirin; Z79.899 Other long term (current) drug therapy; Z88.5 Allergy status to narcotic agent

== ENCOUNTER 2019-11-05 19:31 | Inpatient (IN) | payer OTHER ==
[~2019-11-05] VITALS: Ht 167.6 cm; Wt 82.1 kg
[2019-11-05 19:33] VITALS: BP 123/65
[2019-11-05 20:10] LABS: ABSOLUTE NEUTROPHILS 2.3 thou/uL (1.4-8.2); BASOPHILS 0.8 % (0.0-2.0); EOSINOPHILS 2.2 % (0.0-3.0); HEMATOCRIT 21.6 % (42.0-52.0); HEMOGLOBIN 7.1 gm/dL (14.0-18.0); LYMPHOCYTES 25.2 % (24.0-44.0); MCH 26.5 pg (26.0-34.0); MCHC 32.8 g/dL (28.0-37.0); MCV 80.9 fL (80.0-100.0); MONOCYTES 8.5 % (1.0-8.0); PLATELET COUNT 136 thou/uL (150-400); POLYS 63.3 % (36.0-66.0); RBC 2.67 mil/uL (4.50-6.00); RDW 17.3 % (10.5-14.5); WBC 3.6 thou/uL (4.0-11.0)
[2019-11-05 20:28] LABS: ANION GAP 9 mmol/L (7-16); BUN 57 mg/dL (7-18); CALCIUM 8.2 mg/dL (8.5-10.1); CHLORIDE 106 mmol/L (98-107); CO2 25 mmol/L (21-32); CREATININE 2.9 mg/dL (0.7-1.3); GLUCOSE 117 mg/dL (74-106); POTASSIUM 4.7 mmol/L (3.5-5.1); SODIUM 140 mmol/L (136-145)
[2019-11-05 20:35] LABS: ALBUMIN 3.2 g/dL (3.4-5.0); SGOT 21 U/L (15-37); SGPT 18 U/L (30-65); TOTAL BILIRUBIN 0.2 mg/dL (0.2-1.0); TOTAL PROTEIN 6.2 g/dL (6.4-8.2); TROPONIN-I <0.06 ng/mL (<0.06)
[2019-11-05 21:39] VITALS: BP 133/64
[2019-11-05 21:40] LABS: URINE BILIRUBIN NEGATIVE (Negative); URINE BLOOD NEGATIVE (Negative); URINE CLARITY CLEAR; URINE COLOR YELLOW; URINE GLUCOSE-RANDOM* NEGATIVE (Negative); URINE KETONES NEGATIVE (Negative); URINE LEUKOCYTES-REFLEX NEGATIVE (Negative); URINE NITRITE-REFLEX NEGATIVE (Negative); URINE PROTEIN (DIPSTICK) NEGATIVE (Negative); URINE UROBILINOGEN 0.2 E.U./dl (0.2-1.0)
[2019-11-05 22:26] VITALS: BP 159/100
[2019-11-05 23:49] LABS: % SATURATION 8 % (20-39); IRON 30 ug/dL (65-175); TIBC 364 ug/dL (250-450)
[2019-11-06] VITALS (9 sets, daily range): BP systolic 119–158; BP diastolic 69–87
[2019-11-06 00:19] LABS: FOLIC ACID 18.9 ng/mL (8.6-58.9)
--- NOTE | 2019-11-06 02:59 | NUR ---
ADMIT:PT ADMITTED FROM ED WITH ANEMIA AND ACUTE KIDNEY DISEASE PLUS R/O CVA.ARRIVED TO UNIT VIA W/C.PT PRESENTED TO ED WITH C/O TREMORS TO KANIKA HANDS THAT STARTED YESTERDAY.PT ADMITTED TO STILL CONTINUING TO HAVE TREMORS TO BILATERAL HANDS UPON ARRIVAL TO UNIT AND SOMETIMES EXTENDING TO THE NECK BILATERALLY.RN WITNESSED TREMORS TO KANIKA HANDS INTERMITTENTLY DURING ASSESSMENT.NIH SCORE 2 UPON ARRIVAL.PT A/OX4,FOLLOWS COMMANDS APPROPRIATELY,SPEECH CLEAR.PERRL.EQUAL STRENGTH TO UPPER AND LOWER EXTREMITIES BILATERALLLY.USES A CANE TO AMBULATE.SR ON MONITOR..EDEMA TO KANIKA FEET AND ANKLES.RA W/O RESP DISTRESS.NORMACTIVE BOWEL SOUNDS X4 QUADS.SKIN W/O RASH OR LESION.NO OPEN WOUNDS.VOIDS VIA URINAL.SCDS.PT DENIES PAIN OR ANY DISTRESS AT THIS TIME.IVF PER ORDERS.POC IS TO CONT TO MONITOR .
[2019-11-06 05:41] LABS: HEMOGLOBIN 6.8 gm/dL (14.0-18.0); WBC 3.3 thou/uL (4.0-11.0)
[2019-11-06 05:42] LABS: HEMATOCRIT 20.9 % (42.0-52.0); MCH 26.2 pg (26.0-34.0); MCHC 32.5 g/dL (28.0-37.0); MCV 80.7 fL (80.0-100.0); RBC 2.59 mil/uL (4.50-6.00); RDW 16.9 % (10.5-14.5)
[2019-11-06 05:52] LABS: CALCIUM 8.2 mg/dL (8.5-10.1); CREATININE 2.1 mg/dL (0.7-1.3); POTASSIUM 4.8 mmol/L (3.5-5.1)
--- NOTE | 2019-11-06 08:18 | EKG ---
[facility] [place] [address] ELECTROCARDIOGRAM REPORT Name: LANI MOODY Room #: 202-P ADM IN M.R.#: [id number] Admission: 11/05/19 Attend Phys: Alex Gtz MD Discharge: Date of : 45 Report #: [id number] THIS REPORT FOR: cc: Lesvia Coronado MD, Avan D. MD Couchonnal, Luis F. MD ~ THIS REPORT FOR: //name// [facility] ED Test Date: 2019-11-05 Test Time: 20:10:40 Pat Name: LANI MOODY Department: Room: 202 Gender: M Cardiovascular Or Nurse: GARLAND : 1945 Requested By: Isai Gooden Order Number: [id number] MD: Noman Heath Measurements Intervals Edwards Rate: 81 P: 4 DC: 204 QRS: -2 QRSD: 80 T: 45 QT: 400 QTc: 465 Interpretive Statements Sinus rhythm Compared to ECG 09/18/2019 11:00:47 No significant changes Electronically Signed On 11-06-2019 8:18:13 CDT by Noman Heath [email or web address] <ELECTRONICALLY SIGNED> By: Noman Heath MD 11/06/19817 09 09 Noman Heath MD /EPI
--- NOTE | 2019-11-06 14:25 | NUR ---
Met with patient who dc from rehab unit at [facility] 10/02 with HH. Patient admits with anemia and tremors. Patient rec transfusion at this time. 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 All needs on one level. Has steps to laundry but does not need to use. Patient uses a cane in home as needed. Patient prev d/c from [facility] with [facility] home health and would plan to resume at dc. PCP Dr Victor Hugo Velasquez. Therapy evals in process. Casemgt following.
[2019-11-06 17:26] LABS: HEMATOCRIT 25.4 % (42.0-52.0); HEMOGLOBIN 8.3 gm/dL (14.0-18.0)
--- NOTE | 2019-11-06 20:28 | NUR ---
ASSUMMED PT CARE AT APPROXIMATELY 0700. PT A&O X4. ASSESSMENT CHARTED. FALL PRECAUTIONS IN PLACE. PT DENIES HAVING CHEST PAIN. PT DENIES HAVING HAVING SOB. PT DENIES HAVING ACUTE PAIN. VITAL SIGNS STABLE. BLOOD SUGARS STABLE. PT RECEIVED 1 UNIT OF BLOOD TRANSFUSION. PREPARING FOR EGD AND MRI TOMORROW. PT COMFORTABLE. PT DENIES HAVING FUTHER CONCERNS. HGB STABLE. CONSENT SIGNED FOR EGD.
[2019-11-07 04:45] VITALS: BP 152/87
[2019-11-07 05:44] LABS: HEMATOCRIT 24.4 % (42.0-52.0); MCH 26.5 pg (26.0-34.0); MCHC 32.9 g/dL (28.0-37.0); MCV 80.5 fL (80.0-100.0); RBC 3.04 mil/uL (4.50-6.00); RDW 16.7 % (10.5-14.5)
[2019-11-07 05:48] LABS: CALCIUM 8.1 mg/dL (8.5-10.1); CREATININE 1.7 mg/dL (0.7-1.3); POTASSIUM 4.7 mmol/L (3.5-5.1)
--- NOTE | 2019-11-07 07:06 | NUR ---
NPO SINCE MIDNIGHT FOR A POSSIBLE EGD TODAY.UP WITH PARRISH TO THE BATHROOM.DENIES PAIN AND SOB.MONITOR SHOWS SR. POC CONTINUED.
[2019-11-07 07:55] VITALS: BP 163/92
--- NOTE | 2019-11-07 11:18 | NUR ---
[facility] FA[facility] CLINICAL UPDATE SPOKE WITH SAE IN INTAKE SHE RECEIVED UPDATE AND WILL RESUME CARE AT DISCHARGE. DP TO FOLLOW.
[2019-11-07 12:10] VITALS: BP 144/71
[2019-11-07 15:35] VITALS: BP 183/101
[2019-11-07 17:44] VITALS: BP 126/75
--- NOTE | 2019-11-07 18:03 | NUR ---
ASSUMED CARE AT SHIFT CHANGE, ALERT AND ORIENTED X4, AND DENIES ANY DISCOMFORT. NPO FOR EGD, PATIENT WAS BACK FROM THE PROCEDURE AROUND 1250, AND VSS. PATINEIT KEPT NPO FOR CT ABD AND PELVIS, WHEN INFORMED HE GET UPSET AND REFUSED TO DO IT. ANTOINETTE YE COAGULATION OPERATOR INFORMED, SHE EXPLAINED THE PROCEDURE TO THE PATIENT AND HE REFUSED TO SIGN THE RELEASE OF INFORMATION FORM [facility]. BP ELEVATED 187/107 AND COREG GIVEN, AND BP IS DOWN 126/75. BG WNL AND WILL CONTINUE WITH POC.
[2019-11-07 20:00] VITALS: BP 115/58; BP 125/70
--- NOTE | 2019-11-08 02:08 | NUR ---
ASSUMED CARE OF PATIENT AT 1900. AT SHIFT REPORT DAY NURSE REPORTED PATIENT REFUSED CT AND TO SIGN AUTHORIZATION FOR RELEASE OF INFO. ATTEMPTED TO GET PATIENT TO SIGN RELEASE BUT HE REFUSED TO THIS SHIFT WELL. PATIENT HAS 1+ BLE EDEMA. PATIENT LUNG SOUNDS CLEAR BUT HE C/O SOA WITH ACTIVITY. NO SOA OBSERVED DURING AMBULATION FROM CHAIR TO BED.
[2019-11-08 04:45] VITALS: BP 161/86
[2019-11-08 05:57] LABS: HEMATOCRIT 26.5 % (42.0-52.0); HEMOGLOBIN 8.6 gm/dL (14.0-18.0); MCH 26.2 pg (26.0-34.0); MCHC 32.6 g/dL (28.0-37.0); MCV 80.2 fL (80.0-100.0); RBC 3.3 mil/uL (4.50-6.00); RDW 16.3 % (10.5-14.5); WBC 4.5 thou/uL (4.0-11.0)
[2019-11-08 06:35] LABS: ALBUMIN 3.2 g/dL (3.4-5.0); CALCIUM 8.1 mg/dL (8.5-10.1); CREATININE 1.6 mg/dL (0.7-1.3); PHOSPHORUS 3.7 mg/dL (2.5-4.9); POTASSIUM 4.5 mmol/L (3.5-5.1)
[2019-11-08 07:35] VITALS: BP 165/91
[2019-11-08 09:47] VITALS: BP 165/91
[2019-11-08 10:15] VITALS: BP 165/91
--- NOTE | 2019-11-08 10:45 | NUR ---
DISCHARGING TO HOME WITH HOME HEALTH. SALINE LOCK AND TELE DISCONTINUED. DISCHARGE INSTRUCTIONS GIVEN.
--- NOTE | 2019-11-08 13:16 | NUR ---
Patient to dc home with HH ordered. Attempted to call regarding possible option of outpatient therapy but she did not return call. Sp with [facility] to alert patient can transition to outpatient therapy once HH is deemed done with service.
--- NOTE | 2019-11-08 15:05 | NUR ---
FAXED DC ORDERS/SUMMARY TO [facility] HH SPOKE WITH ALEJANDRINA IN INTAKE SHE RECEIVED ORDERS AND WILL NOTIFY PT TIME OF VISITS.
--- NOTE | 2019-11-08 15:07 | PATH ---
[facility] [address] [place] [address] PATHOLOGY RPT PROCEDURE Name: LANI BENNETT Room #: 202-P [facility] IN M.R.#: [id number] Admission: 11/05/19 Date of : 45 Discharge: 11/08/19 Report #: [id number] Path Case #: [id number] [facility] Accession Number: [id number] . 01 Material submitted: . stomach - BIOPSY OF SUBMUCOSAL LESION ANTRUM OF STOMACH . 01 Clinical history: . Dysphagia, anemia, melena, Hemoccult positive stool Acute kidney injury . 02 Diagnosis: Gastric mucosa, submucosal lesion antrum of stomach, endoscopic biopsy: - Fragments of mucosa showing mild chronic gastritis with features of reactive gastropathy. - No submucosal lesion present. - Negative for intestinal metaplasia or atrophy. - Negative for Helicobacter pylori (properly controlled immunohistochemical stain performed). (IUV:pit 11/08/2019) QTP 11/08/2019 1418 Local . 02 Electronically signed: . Yessenia Oneill MD, Pathologist NPI- [id number] . 01 Gross description: . The specimen is received in formalin, labeled "Lani Bennett Jr., biopsy of submucosal lesion antrum". Received are four segments of pale burr soft tissue ranging in size from 0.2 to 0.4 cm in maximum dimensions. The specimen is submitted entirely in cassette A1. (CAA; 11/07/2019) QA/QA 11/07/2019 1657 Local . 02 Pathologist provided ICD-10: K29.50 . 02 CPT . 913038, E04910 Specimen Comment: A courtesy copy of this report has been sent to [phone], [phone] Specimen Comment: [phone], Specimen Comment: Report sent to ,DR GARCIA / DR DYER Performed at: [address] [facility] [id number] MD Monty Murguia MD Phone: [phone] [place] [address] PATHOLOGY RPT PROCEDURE Name: LANI BENNETT JR Room #: 202-P DIS IN M.R.#: [id number] Admission: 11/05/19 Date of : 45 Discharge: 11/08/19 Report #: [id number] Path Case #: [id number] Performed at: [address] [facility] [place] [address], [place], [place] [id number] MD Yessenia Oneill MD Phone: [phone]
--- NOTE | 2019-11-08 16:18 | NUR ---
spoke with discussed outpatient therapy. She wants HH and feels he is not ready for outpatient.
--- NOTE | 2019-11-08 19:57 | HC ---
[facility] [place] [address] CONSULTATION Name: LANI MOODY JR Room #: 202-P [facility] IN M.R.#: [id number] Admission: 11/05/19 Attend Phys: Alex Gtz MD Discharge: 11/08/19 Date of : 45 Report #: [id number] THIS REPORT FOR: cc: Lesvia Coronado MD, Avan D. MD Khosla, Parveen K. MD ~ CC: Lesvia Gtz DATE OF SERVICE: 11/06/2019 HISTORY OF PRESENT ILLNESS: This is a 73-year-old male patient who is a poor historian. He says he is here for stroke. When I asked him what kind of symptoms he has, he says he has tremor. He had tremors before also and it has shown tiny stroke. Tremor is in both hands. It started the day before admission. He does not know anything which makes it better or worse. REVIEW OF SYSTEMS: Positive for CVA, chronic kidney disease, diabetes, hypertension, peripheral vascular disease, posttraumatic stress disorder, depression, neuropathy. All these problems are longstanding. 14-point review of system was carried out. It is pretty extensive, but mostly noncontributory to the present problem except as summarized above. PAST MEDICAL HISTORY: Positive for stroke for which he was in the hospital. When he was here, he had a workup of thoracic spine, lumbar spine, MRA of the [place] of [place], MRA of the carotid, subsequently he also had carotid ultrasound, which showed mild plaques, but no significant stenosis. Past medical history is positive for stroke. FAMILY HISTORY: Noncontributory. SOCIAL HISTORY: He says he does not drink any alcohol. PHYSICAL EXAMINATION: Indicate he is alert. He is responsive. He is worried about his tremor. When I did the cognitive evaluation, he did not do very well, but I do not know what his baseline is. I have seen him in the past and his cranial nerve examination and neuromuscular examination is pretty much unchanged, but he does have tremor. Tremor is present on both sides. I did not remember from the last time whether his tremor was like this or not. There is no meningeal sign. I could not look at the patient's fundus. Cardiac and respiratory examinations appear noncontributory. His creatinine is 2.1, which is still high. When he came in, it was 2.9. IMPRESSION: Difficult to tell if the patient has a new stroke and/or not. I think MRI is reasonable; that is the first test, I would like to see whether it demonstrate any stroke or not, then we can decide about the further workup. His [facility] [address] [place] [address] CONSULTATION Name: LANI MOODY Room #: 202-P [facility] IN M.R.#: [id number] Admission: 11/05/19 Attend Phys: Alex Gtz MD Discharge: 11/08/19 Date of : 45 Report #: [id number] PT, OT evaluation has been done and that was reviewed and looks like he is reasonably stable. Thank you very much for this referral. We will follow this patient along with you. <ELECTRONICALLY SIGNED> By: Jaylen Duran MD 11/08/19 1957 1646 2145 Jaylen Duran MD /nt
--- NOTE | 2019-11-09 08:57 | P ---
[facility] [place] [address] PROCEDURE REPORT Name: LANI MOODY JR Room #: 202-P [facility] IN M.R.#: [id number] Admission: 11/05/19 Attend Phys: Alex Gtz MD Discharge: 11/08/19 Date of : 45 Report #: [id number] THIS REPORT FOR: cc: Suzy Coronado MD, Avan D. MD [facility] MD ~ CC: SUZY Soriano INPATIENT UPPER ENDOSCOPY REPORT BRIEF HISTORY: The patient is a 73-year-old male with known cerebrovascular disease and recent CVA, who is on aspirin and Plavix and presents with significant drop in hemoglobin since last hospitalization. On 09/18/2019, his hemoglobin was 14.5 on admission, this occasion it was down to 6.8. It is noted that he is borderline microcytic, but he actually has microcytosis dating back to 02/2010. He also has thrombocytopenia with a platelet count of 116,000. This also has been chronic, dating back to at least 2013. PREOPERATIVE DIAGNOSES: Anemia and Hemoccult-positive stools. He also has solid food dysphagia and describes burning in his chest. POSTOPERATIVE DIAGNOSES: 1. Large submucosal antral lesion without evidence of active bleeding. 2. Small hiatal hernia. 3. Erythematous antral gastritis. MEDICATIONS: Deep sedation with propofol per Anesthesia. SPECIMEN: Biopsies of submucosal antral lesion. ESTIMATED BLOOD LOSS: 3 mL. PROCEDURE: EGD with biopsy. FINDINGS: Prior to propofol sedation, procedure of upper endoscopy discussed with the patient as well potential risks and its complications. He indicates he understands and desires to proceed. DESCRIPTION OF PROCEDURE: With the patient in left lateral decubitus position, the Olympus video endoscope was inserted into cervical esophagus under direct vision without difficulty. Examination of the stomach revealed normal esophageal mucosa down to the squamocolumnar junction. Squamocolumnar junction was inspected and noted to be unremarkable. No evidence of bleeding lesions. No strictures or masses were seen. He had complaints of dysphagia, but a stricture was not seen. The scope was advanced into about a 3-4 cm sliding-type [address] [address] PROCEDURE REPORT Name: LANI MOODY Room #: 202-P [facility] IN ..#: [id number] Admission: 11/05/19 Attend Phys: Alex Gtz MD Discharge: 11/08/19 Date of : 45 Report #: [id number] hiatal hernia. The mucosa of the hernia was unremarkable. No evidence of ulcers or bleeding lesions. The scope was advanced into the stomach, was examined on end view as well as retroflexed views. Examination of the proximal stomach on end view as well as retroflexed views revealed evidence of the hiatal hernia, but no other abnormalities were seen and specifically, no bleeding or potential bleeding lesions were seen. However, examination of the distal stomach revealed moderate erythema at the antrum. In addition, on the greater curvature aspect of the stomach, in particularly the antrum, there was a good sized submucosal lesion. It was filling at least a third of the lumen of the antrum. It was not obstructing. I would guess that this lesion is at least 4-5 cm in greatest dimension and possibly larger. The mucosa was erythematous. I examined the bulging mucosa as well as possible and a definite bleeding lesion or ulcer was not found. Pylorus was unremarkable. Duodenal bulb was unremarkable and duodenal sweep down to the third portion was unremarkable. At that point, the scope was slowly withdrawn and careful circumferential views confirmed the above finding. We then obtained multiple biopsies of the submucosal lesion. All biopsies were obtained from a single point, hopefully to obtain deep tissue for pathology. Following the procedure, he was dilated with passage of 50-Kazakh Benitez dilator without resistance. DISPOSITION: The patient with significant drop in hemoglobin and findings of a submucosal antral lesion. 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 It appears to be good size endoscopically. I do not see a definite bleeding site. However, it is possible the lesion at this site could have an ulceration. I suspect most of his blood loss was back in September and looking back through the reports, his hemoglobin was dropping at the time of his most recent admission. It is also noted that he did have significant rise in his BUN, it was 33 when he was admitted and when his hemoglobin dropped, it dru to 74; however, his creatinine is relatively stable at the same period of time. We will follow up on biopsies obtained today. We will obtain a CT scan of his abdomen. Unfortunately, I cannot use IV contrast due to his chronic kidney disease. Depending on results, he may benefit from further evaluation such as endoscopic ultrasound. The lesion is a good size and I think, overall, surgical removal would be likely recommended. He has had a drop in hemoglobin. He has had several colonoscopies, last about 3 years ago. We will discuss further with the patient with regards to the merits of doing another colonoscopy at this time since we did not find a bleeding [facility] [address] [place] [address] PROCEDURE REPORT Name: LANI MOODY Room #: 202-P [facility] IN ..#: [id number] Admission: 11/05/19 Attend Phys: Alex Gtz MD Discharge: 11/08/19 Date of : 45 Report #: [id number] lesion on this exam, although it is speculated that he may have had bleeding from an ulcer, which has healed. <ELECTRONICALLY SIGNED> By: Scott Knight MD 11/09/19 0857 1348 [id number] Scott Knight MD /nt
== END 2019-11-08 11:28 | disposition home health service (06) | DRG 377 ==
LOC: ER 19:31 → EROBS 20:52 → 2N 20:52
PROVIDERS: Emergency Medicine; Nurse Practitioner; Nurse Practitioner Family; ADMIT Hospitalist; ATTEND Hospitalist
PROC: 0DB68ZX Excision of Stomach, Via Natural or Artificial Opening Endoscopic, Diagnostic (ICD-10-PCS; principal; 2019-11-05)
PROC: 30233N1 Transfusion of Nonautologous Red Blood Cells into Peripheral Vein, Percutaneous Approach (ICD-10-PCS; 2019-11-06)
PROC: 0D738ZZ Dilation of Lower Esophagus, Via Natural or Artificial Opening Endoscopic (ICD-10-PCS; 2019-11-07)
DX: K92.1 Melena (principal); N17.0 Acute kidney failure with tubular necrosis; I69.351 Hemiplegia and hemiparesis following cerebral infarction affecting right dominant side; K29.50 Unspecified chronic gastritis without bleeding; R25.1 Tremor, unspecified; Z20.828 Contact with and (suspected) exposure to other viral communicable diseases; E11.51 Type 2 diabetes mellitus with diabetic peripheral angiopathy without gangrene; F32.9 Major depressive disorder, single episode, unspecified; D64.9 Anemia, unspecified; K44.9 Diaphragmatic hernia without obstruction or gangrene; E11.22 Type 2 diabetes mellitus with diabetic chronic kidney disease; N18.3 Chronic kidney disease, stage 3 (moderate); E11.42 Type 2 diabetes mellitus with diabetic polyneuropathy; I12.9 Hypertensive chronic kidney disease with stage 1 through stage 4 chronic kidney disease, or unspecified chronic kidney disease; F43.10 Post-traumatic stress disorder, unspecified; N40.0 Benign prostatic hyperplasia without lower urinary tract symptoms; K21.9 Gastro-esophageal reflux disease without esophagitis; R47.02 Dysphasia; M62.84 Sarcopenia; G47.00 Insomnia, unspecified; Z88.6 Allergy status to analgesic agent; Z87.891 Personal history of nicotine dependence; Z79.82 Long term (current) use of aspirin; Z86.010 Personal history of colon polyps; Z79.899 Other long term (current) drug therapy
CPT/HCPCS: 10081; 62110; 62900; 70005